=== PATIENT | female | born 1980 | race Caucasian/White ===

== ENCOUNTER 2025-02-07 08:23 | Emergency (ER) | payer OTHER, SELFPAY ==
[2025-02-07 08:29] VITALS: BP 115/88
--- NOTE | 2025-02-07 09:17 | ED.GENMED ---
History of Present Illness
General
Chief Complaint: Numbness
Source: patient
Exam Limitations: none
Time Seen by Provider: 02/07/25 09:05
History of Present Illness
History of Present Illness:
44yo [id number] female with no significant past medical history presenting with her for hand pain. Symptoms have been ongoing for about a week and a half. She denies any trauma or inciting incident. She reports pain in bilateral
hands but symptoms are worse on the left hand. She describes a pain in her palm area with tingling in her fingertips (primarily the thumb, index, and middle fingers). 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 Symptoms are worse at
nighttime and if she lays down but do improve if she is ambulating. She took Advil last night without improvement. She apparently had Lyme testing last month by her PCP which showed 'active disease' but she did not have a chance to discuss this
with her PCP yet. She denies any other joint pains, fevers, rash, neck pain.
Phy Exam
General Physical Exam
General Presentation: well appearing and no apparent distress
General Skin: warm and dry
General Habitus: normal
General Mental: alert
ENT Exam
ENT Exam: normocephalic
Cardiovascular Exam
Cardiovascular Exam: normal peripheral pulses
Pulmonary Exam
Pulmonary Exam: no respiratory distress
Neurological Exam
Neurological Exam: alert
Rodrigo Coma Scale
Eye Opening: Spontaneous
Verbal Response: Oriented
Motor Response: Obeys Commands
GCS Total Score: 15
Musculoskeletal Exam
Musculoskeletal Exam: other (Bilateral hands are normal to inspection. No tenderness to palpation. ROM intact. Negative Tinel sign. 2+ radial pulses and sensation intact.)
Skin Exam
Skin Exam: normal color and warm/dry
Psychiatric Exam
Psychiatric Exam: normal mood/affect
Course
Orders/Labs/Results
Orders:
Orders
02/07/25 09:16
CR Hand - Left Min 3 Views Urgent
Comment:
Reason For Exam: pain
CR Hand - Right Min 3 Views Urgent
Comment:
Reason For Exam: pain
Vital Signs
Initial and Last Documented VS:
Initial Vital Signs
Temp Pulse Resp BP Pulse Ox
98.4 F 79 18 115/88 99
02/07/25 08:29 02/07/25 08:02/07/25 08:29 02/07/25 08:02/07/25 08:29
Last Documented Vital Signs
Temp Pulse Resp BP Pulse Ox
98.4 F 79 18 115/88 99
02/07/25 08:02/07/25 08:02/07/25 08:02/07/25 08:02/07/25 09:20
MDM/Problems Addressed
Differential Diagnosis Includes:
44yoF here with atraumatic bilateral hand pain, L>R, x 1 week. Worse at nighttime. Also having tingling in fingers and weakened computer terminal operator. Exam reassuring. No skin changes or tenderness noted and bilateral upper extremities are neurovascularly intact.
Differential diagnosis includes: carpal tunnel, osteoarthritis, underlying rheumatologic disease
X-rays of bilateral hands obtained which are unremarkable. Suspect carpal tunnel. She was advised to wear wrist braces at nighttime which she has at home and prescription for prednisone provided. She mentions having an abnormal Lyme test recently
that was checked by her PCP. She was advised to call her PCP to discuss this further.
*Pulse Oximetry
SaO2: 99
Oxygen Mode of Delivery: Room air
Patient hypoxic: no
*Critical Care Note
Total Time (30-74mins, 75-104mins- exclusive of procedures): Not Applicable
ED Attending Note
-
Portions of this chart may have been created with voice recognition software.� Occasional wrong word or��sound alike� substitutions may have occurred due to the inherent limitations of voice recognition software.
Discharge Plan
Departure
Patient Disposition: Home (Routine Discharge)
Date of Disposition: 02/07/25
Time of Disposition: 10:03
Patient with high blood pressure during this ER visit?: No
Discharge Problem:
Bilateral hand pain
Instructions: Carpal tunnel syndrome
Prescriptions:
New
prednisone 50 mg tablet
50 mg PO DAILY Qty: 5 0RF
Referrals:
Noy Locke DO [Family Provider, Internal Medicine]
Activity Restrictions/Additional Instructions:
Wear wrist braces at bedtime. Take prednisone as prescribed.
Please call your family doctor on Sunday to discuss your Lyme test results and schedule a follow-up appointment.
Interventions
Interventions:
*Risk Screen - Suicide Last Done: 02/07/25 08:29
*General Assessment Last Done: 02/07/25 08:29
*Neglect/Abuse Screening Last Done: 02/07/25 08:29
*Nursing Disposition Last Done: 02/07/25 10:12
ED-Musculoskeletal Assessment Last Done: 02/07/25 09:25
ED- Neurological Assessment Last Done: 02/07/25 09:25
Discharge Date and Time
Discharge Date/Time: 02/07/25 10:12
Print Language: VENEZUELAN
== END 2025-02-07 10:12 | disposition home or self-care (01) ==
LOC: EMR 08:23
PROVIDERS: EMERGENCY PHYSICIAN Emergency Medicine; FAMILY PHYSICIAN Internal Medicine
DX: M79.641 Pain in right hand (principal); M79.642 Pain in left hand; R20.2 Paresthesia of skin
CPT/HCPCS: 99283; 73130